=== PATIENT | female | born 1945 | race Caucasian/White ===

== ENCOUNTER 2020-02-16 13:02 | Emergency (ER) | payer MEDICARE ==
[2020-02-16 14:08] LABS: Absolute Neutrophil Ct (ANC) 1.56 (1.4-6.9); Basophil (Absolute #) 0 (0-0.4); Eosinophil % 1.3 % (0.00-5.0); Eosinophil (Absolute #) 0.05 (0-0.5); Hematocrit 43.6 % (35-47); Hemoglobin 14.2 gm/dl (12.0-16.0); Lymphocyte (Absolute #) 1.75 (1.0-4.6); Lymphocytes % 45.8 % (24.0-44.0); Mean Corpuscular Hemoglobin 30.9 pg (26-32); Mean Corpuscular Hgb Concent. 32.6 g/dl (32-36); Mean Platelet Volume 10.6 fl (7.5-11.0); Monocyte (Absolute #) 0.46 (0.0-1.3); Neutrophil % 40.9 % (36.0-66.0); Platelet Count 157 K/mm3 (150-450); Red Blood Count 4.59 M/mm3 (4.1-5.4); Red Cell Distribution Width 13.5 % (11.5-14.0); White Blood Count 3.8 K/mm3 (4.0-10.5)
[2020-02-16 14:19] LABS: ALBUMIN 4.4 g/dL (3.5-5.0); ANION GAP 14.1 MEQ/L (5-15); BILIRUBIN,TOTAL 0.7 mg/dL (0.2-1.3); Calcium 9.2 mg/dL (8.4-10.2); Creatinine 1 1.77 mg/dL (0.52-1.04); Total Protein 7.6 g/dL (6.3-8.2)
[2020-02-16 14:21] LABS: INR 1.3 (0.8-3.0); PROTIME 14.7 SECONDS (9.95-12.35)
[2020-02-16 14:24] LABS: PTT 31.4 SECONDS (25.3-37.0)
[2020-02-16 14:32] LABS: Appearance SLIGHTLY CLOUDY (CLEAR); Bacteria FEW /HPF (NEGATIVE); Bilirubin SMALL (NEGATIVE); Blood NEGATIVE Ery/ul (0-5); Epithelial Cells RARE /HPF (FEW); Glucose NEGATIVE (NEGATIVE); Ketones NEGATIVE (NEGATIVE); Leukocyte Esterase LARGE (NEGATIVE); Mucus SLIGHT /HPF (NEGATIVE); Nitrite NEGATIVE (NEGATIVE); Protein,Urine Dip 30 (Negative); Specific Gravity 1.029 (1.005-1.025); Urobilinogen NEGATIVE mg/dL (0-1)
--- NOTE | 2020-02-16 14:47 | ERPHSYRPT ---
- History of Present Illness Source: patient Exam Limitations: no limitations Patient Subjective Stated Complaint: dizziness x 1 at lunch time Triage Nursing Assessment: pt to ED c/o dizzy spell at 1200 today while making lunch. did not fall and no LOC. pt is ambulatory with steady gate on arrival to ED. pt also states she is not dizzy currently. also reports + COVID test came back today after exposure to brother last week. has mild cough and sinus drainage that she is taking sinus meds for with relief. no other COVID sx currently, afebrile on arrival - 98.9 Physician History: 74 yo wf w recent Covid diagnosis presents w short dizzy episode while making lunch. Pt states that she has been relatively asymptomatic w mild, nonproductive cough which seems to be improving. She denies dyspnea/fever/chest pain/focal weakness/melena/hematochezia/N/V/D. Time of Onset/Last Time Seen Normal: 12PM Timing/Duration: other (Lasted 15-20 minutes) Severity: mild Character of Deficits: none Deficits: no difficulties Baseline/Normal Cognition: alert oriented x 3 Current Cognition: alert oriented x 3 Baseline Gait: walks w/o assistance Associated Symptoms: No confusion, No fatigue, No fever, No chills, No loss of consciousness, No nausea, No vomiting, No weakness, No insomnia, No muscle spasms, No numbness/tingling in legs/feet, No paresthesia, No ringing in ears, No seizures, No slurred speech, No trouble walking, No vision changes, No chest pain, No headache Allergies/Adverse Reactions: No Known Drug Allergies Allergy (Unverified 02/16/20 13:59) Home Medications: Atorvastatin Calcium 20 mg PO DAILY 02/16/20 [History] Clopidogrel Bisulfate [Clopidogrel] 75 mg PO DAILY 02/16/20 [History] Losartan Potassium 25 mg PO BID 02/16/20 [History] Metoprolol Tartrate 25 mg PO BID 02/16/20 [History] Nitroglycerin 0.4 mg Tablet [Nitrostat 0.4 MG Tablet] 0.4 mg SL DAILY 02/16/20 [History] PANTOPRAZOLE 40 mg Tablet [Protonix 40MG Tablet] 40 mg PO DAILY 02/16/20 [History] Rivaroxaban [Xarelto] 15 mg PO DAILY 02/16/20 [History] hydroCHLOROthiazide [Hydrochlorothiazide] 12.5 mg PO DAILY 02/16/20 [History] Hx Tetanus, Diphtheria Vaccination/Date Given: Yes Hx Influenza Vaccination/Date Given: Yes Hx Pneumococcal Vaccination/Date Given: Yes Immunizations Up to Date: Yes Travel Risk - International Travel Have you traveled outside of the country in past 3 weeks: No - Coronavirus Screening Are you exhibiting any of the following symptoms?: No Close contact with a COVID-19 positive Pt in past 14-21 Days: Yes - Review of Systems Constitutional: No Fever, No Chills, No Fatigue, No Lethargy, No Malaise, No Night Sweats, No Weakness, No Weight Loss Eyes: No Symptoms Ears, Nose, & Throat: No Symptoms Respiratory: Cough Cardiac: No Symptoms Abdominal/Gastrointestinal: No Symptoms Genitourinary Symptoms: No Symptoms Musculoskeletal: No Symptoms Skin: No Symptoms Neurological: No Symptoms Psychological: No Symptoms Endocrine: No Symptoms Hematologic/Lymphatic: No Symptoms Immunological/Allergic: No Symptoms - Past Medical History Pertinent Past Medical History: Yes Cardiac History: Angina, Hypertension Other Medical History: hyperlipidemia, heart cath w stents placed - Past Surgical History Past Surgical History: Yes Cardiac: Cardiac Catheterization, Cardiac Stent - Social History Smoking Status: Former smoker Exposure to second hand smoke: No Drug Use: none Patient Lives Alone: No Significant Family History: no pertinent family hx - Female History Hx Now: No - Nursing Vital Signs Nursing Vital Signs: Initial Vital Signs Temperature 98.9 F 02/16/20 13:44 Pulse Rate 72 02/16/20 13:44 Respiratory Rate 16 02/16/20 13:44 Blood Pressure 165/99 02/16/20 13:44 O2 Sat by Pulse Oximetry 94 L 02/16/20 13:44 Pain Scale Pain Intensity 0 - [place] Coma Scale Best Eye Response ([place]): (4) open spontaneously Best Verbal Response ([place]): (5) oriented Best Motor Response ([place]): (6) obeys commands [place] Total: 15 - Physical Exam General Appearance: no apparent distress Eye Exam: bilateral eye: normal inspection, PERRL, EOMI Ears, Nose, Throat Exam: normal ENT inspection, TMs normal, pharynx normal, moist mucous membranes Neck Exam: normal inspection, non-tender, supple, full range of motion, No meningismus, No mass, No Brudzinski Respiratory: normal breath sounds, lungs clear, airway intact, No respiratory distress Cardiovascular: regular rate/rhythm, normal heart sounds, No murmur Gastrointestinal: soft, normal bowel sounds Back Exam: normal inspection, normal range of motion, CVA tenderness, No vertebral tenderness Extremity Exam: normal inspection, normal range of motion, pedal edema (Chronic) Mental Status: alert, oriented x 3, 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 Exam: normal hearing, normal speech, PERRL Coordination/Gait: normal finger to nose Motor/Sensory: no motor deficit, no sensory deficit, no pronator drift, negative Babinski's sign DTR: bicep (R): 2+, bicep (L): 2+, knee (R): 2+, knee (L): 2+ Skin Exam: normal color, warm, dry, No rash SpO2 Interpretation: borderline oxygenation SpO2: 92 O2 Delivery: Room Air - Course Nursing assessment & vital signs reviewed: Yes EKG Interpreted by Me: RATE (Paced/R71/Normal Qt-Qtc/Poor R wave progression/Flat T waves) Ordered Tests: Active Orders 24 hr Category Date Time Status Bridge Repairer STAT Care 02/16/20 13:44 Completed EKG-ER Only STAT Care 02/16/20 13:44 Completed IV Insertion STAT Care 02/16/20 13:36 Completed Pulse Oximetry (ED) STAT Care 02/16/20 13:44 Completed CHEST WITHOUT CONTRAST [CT] Stat Exams 02/16/20 13:47 Completed HEAD WITHOUT CONTRAST [CT] Stat Exams 02/16/20 13:47 Completed CBC W DIFF Stat Lab 02/16/20 13:45 Completed CMP Stat Lab 02/16/20 13:45 Completed CULTURE,URINE Stat Lab 02/16/20 Received Lactic Acid Stat Lab 02/16/20 13:44 Completed PROTIME WITH INR Stat Lab 02/16/20 13:45 Completed PTT Stat Lab 02/16/20 13:45 Completed TROPONIN Q3H Lab 02/16/20 13:45 Completed TROPONIN Q3H Lab 02/16/20 17:00 Completed UA W/RFX UR CULTURE Stat Lab 02/16/20 Completed Medication Summary Discontinued Medications Generic Name Dose Route Start Last Admin Trade Name Freq PRN Reason Stop Dose Admin Sodium Chloride 1,000 mls @ 999 mls/hr 02/16/20 17:10 02/16/20 17:16 Sodium Chloride 0.9% 1000 Ml IV 02/16/20 18:10 999 mls/hr .Q1H1M STA Administration Sodium Chloride Confirm 02/16/20 17:12 Sodium Chloride 0.9% 1000 Ml Administered 02/16/20 17:13 Dose 1,000 mls @ ud .ROUTE .STK-MED ONE Lab/Rad Data: Laboratory Result Diagrams 02/16/20 13:45 02/16/20 13:45 Laboratory Results 02/16/20 02/16/20 02/16/20 Range/Units Unknown 17:00 13:45 WBC (4.0-10.5) K/mm3 RBC (4.1-5.4) M/mm3 Hgb (12.0-16.0) gm/dl Hct (35-47) % MCV (78-100) fl MCH (26-32) pg MCHC (32-36) g/dl RDW (11.5-14.0) % Plt Count (150-450) K/mm3 MPV (7.5-11.0) fl Gran % (36.0-66.0) % Eos # (Auto) (0-0.5) Absolute Lymphs (auto) (1.0-4.6) Absolute Monos (auto) (0.0-1.3) Lymphocytes % (24.0-44.0) % Monocytes % (0.0-12.0) % Eosinophils % (0.00-5.0) % Basophils % (0.0-0.4) % Absolute Granulocytes (1.4-6.9) Basophils # (0-0.4) PT (9.95-12.35) SECONDS INR (0.8-3.0) APTT (25.3-37.0) SECONDS Sodium (137-145) mmol/L Potassium (3.5-5.1) mmol/L Chloride (98-107) mmol/L Carbon Dioxide (22-30) mmol/L Anion Gap (5-15) MEQ/L BUN (7-17) mg/dL Creatinine (0.52-1.04) mg/dL Estimated GFR ML/MIN Glucose (74-106) mg/dL Lactic Acid (0.4-2.0) Calcium (8.4-10.2) mg/dL Total Bilirubin (0.2-1.3) mg/dL AST (14-36) U/L ALT (0-35) U/L Alkaline Phosphatase (38-126) U/L Troponin I < 0.012 < 0.012 (0.000-0.034) ng/mL Serum Total Protein (6.3-8.2) g/dL Albumin (3.5-5.0) g/dL Urine Color FRANCIE (YELLOW) Urine Appearance SLIGHTLY CLOUDY (CLEAR) Urine pH 5.0 (5-6) Ur Specific [place] 1.029 (1.005-1.025) Urine Protein 30 (Negative) Urine Ketones NEGATIVE (NEGATIVE) Urine Blood NEGATIVE (0-5) Adrian/ul Urine Nitrite NEGATIVE (NEGATIVE) Urine Bilirubin SMALL (NEGATIVE) Urine Urobilinogen NEGATIVE (0-1) mg/dL Ur Leukocyte Esterase LARGE (NEGATIVE) Urine WBC (Auto) 6-10 (0-5) /HPF Urine RBC (Auto) 3-5 (0-2) /HPF U Hyaline Cast (Auto) 11-25 (0-2) /LPF U Epithel Cells (Auto) RARE (FEW) /HPF Urine Bacteria (Auto) FEW (NEGATIVE) /HPF Urine Mucus (Auto) SLIGHT (NEGATIVE) /HPF Urine Culture Reflexed YES (NO) Urine Glucose NEGATIVE (NEGATIVE) mg/dL 02/16/20 02/16/20 02/16/20 Range/Units 13:45 13:45 13:45 WBC 3.8 L (4.0-10.5) K/mm3 RBC 4.59 (4.1-5.4) M/mm3 Hgb 14.2 (12.0-16.0) gm/dl Hct 43.6 (35-47) % MCV 95.0 (78-100) fl MCH 30.9 (26-32) pg MCHC 32.6 (32-36) g/dl RDW 13.5 (11.5-14.0) % Plt Count 157 (150-450) K/mm3 MPV 10.6 (7.5-11.0) fl Gran % 40.9 (36.0-66.0) % Eos # (Auto) 0.05 (0-0.5) Absolute Lymphs (auto) 1.75 (1.0-4.6) Absolute Monos (auto) 0.46 (0.0-1.3) Lymphocytes % 45.8 H (24.0-44.0) % Monocytes % 12.0 (0.0-12.0) % Eosinophils % 1.3 (0.00-5.0) % Basophils % 0.0 (0.0-0.4) % Absolute Granulocytes 1.56 (1.4-6.9) Basophils # 0 (0-0.4) PT 14.7 H (9.95-12.35) SECONDS INR 1.30 (0.8-3.0) APTT 31.4 (25.3-37.0) SECONDS Sodium 137 (137-145) mmol/L Potassium 4.0 (3.5-5.1) mmol/L Chloride 103 (98-107) mmol/L Carbon Dioxide 24 (22-30) mmol/L Anion Gap 14.1 (5-15) MEQ/L BUN 29 H (7-17) mg/dL Creatinine 1.77 H (0.52-1.04) mg/dL Estimated GFR 30.0 ML/MIN Glucose 114 H (74-106) mg/dL Lactic Acid (0.4-2.0) Calcium 9.2 (8.4-10.2) mg/dL Total Bilirubin 0.70 (0.2-1.3) mg/dL AST 24 (14-36) U/L ALT 16 (0-35) U/L Alkaline Phosphatase 80 (38-126) U/L Troponin I (0.000-0.034) ng/mL Serum Total Protein 7.6 (6.3-8.2) g/dL Albumin 4.4 (3.5-5.0) g/dL Urine Color (YELLOW) Urine Appearance (CLEAR) Urine pH (5-6) Ur Specific [place] (1.005-1.025) Urine Protein (Negative) Urine Ketones (NEGATIVE) Urine Blood (0-5) Adrian/ul Urine Nitrite (NEGATIVE) Urine Bilirubin (NEGATIVE) Urine Urobilinogen (0-1) mg/dL Ur Leukocyte Esterase (NEGATIVE) Urine WBC (Auto) (0-5) /HPF Urine RBC (Auto) (0-2) /HPF U Hyaline Cast (Auto) (0-2) /LPF U Epithel Cells (Auto) (FEW) /HPF Urine Bacteria (Auto) (NEGATIVE) /HPF Urine Mucus (Auto) (NEGATIVE) /HPF Urine Culture Reflexed (NO) Urine Glucose (NEGATIVE) mg/dL 02/16/20 Range/Units 13:44 WBC (4.0-10.5) K/mm3 RBC (4.1-5.4) M/mm3 Hgb (12.0-16.0) gm/dl Hct (35-47) % MCV (78-100) fl MCH (26-32) pg MCHC (32-36) g/dl RDW (11.5-14.0) % Plt Count (150-450) K/mm3 MPV (7.5-11.0) fl Gran % (36.0-66.0) % Eos # (Auto) (0-0.5) Absolute Lymphs (auto) (1.0-4.6) Absolute Monos (auto) (0.0-1.3) Lymphocytes % (24.0-44.0) % Monocytes % (0.0-12.0) % Eosinophils % (0.00-5.0) % Basophils % (0.0-0.4) % Absolute Granulocytes (1.4-6.9) Basophils # (0-0.4) PT (9.95-12.35) SECONDS INR (0.8-3.0) APTT (25.3-37.0) SECONDS Sodium (137-145) mmol/L Potassium (3.5-5.1) mmol/L Chloride (98-107) mmol/L Carbon Dioxide (22-30) mmol/L Anion Gap (5-15) MEQ/L BUN (7-17) mg/dL Creatinine (0.52-1.04) mg/dL Estimated GFR ML/MIN Glucose (74-106) mg/dL Lactic Acid 1.3 (0.4-2.0) Calcium (8.4-10.2) mg/dL Total Bilirubin (0.2-1.3) mg/dL AST (14-36) U/L ALT (0-35) U/L Alkaline Phosphatase (38-126) U/L Troponin I (0.000-0.034) ng/mL Serum Total Protein (6.3-8.2) g/dL Albumin (3.5-5.0) g/dL Urine Color (YELLOW) Urine Appearance (CLEAR) Urine pH (5-6) Ur Specific [place] (1.005-1.025) Urine Protein (Negative) Urine Ketones (NEGATIVE) Urine Blood (0-5) Adrian/ul Urine Nitrite (NEGATIVE) Urine Bilirubin (NEGATIVE) Urine Urobilinogen (0-1) mg/dL Ur Leukocyte Esterase (NEGATIVE) Urine WBC (Auto) (0-5) /HPF Urine RBC (Auto) (0-2) /HPF U Hyaline Cast (Auto) (0-2) /LPF U Epithel Cells (Auto) (FEW) /HPF Urine Bacteria (Auto) (NEGATIVE) /HPF Urine Mucus (Auto) (NEGATIVE) /HPF Urine Culture Reflexed (NO) Urine Glucose (NEGATIVE) mg/dL - Progress Progress: improved Counseled pt/family regarding: lab results, diagnosis, need for follow-up, rad results - Departure Departure Disposition: Home Clinical Impression: Dizziness, Urinary tract infection Condition: Stable Critical Care Time: No Referrals: ROSA LOAIZA PA [Primary Care Provider] - Instructions: Dizziness, Nonvertigo, (DC) Additional Instructions: Follow up with your family MD Return to ER for focal weakness/Increasing shortness of breath/chest pain/temperature greater than 100.5 Prescriptions: Smz/Tmp Ds Tablet [Bactrim Ds Tablet] 1 tab PO Q12H 5 Days #10 tablet
--- NOTE | 2020-02-16 16:11 | XRAY ---
Exam: CT of the head without IV contrast from 02/16/2020. CTDI: 53.92 mGy Comparison: None. Indication: 74-year-old female positive for Covid-19; dizziness. Technique: Non-IV contrast axial images were obtained through the brain. Reconstructed coronal and sagittal images were created and reviewed. Findings: The ventricles are of normal size and configuration. No focal mass effect or midline shift is seen. There are small bilateral basal ganglia calcifications. This is nonspecific. No acute intracranial bleed or abnormal extra-axial fluid collection is seen. The hauser matter-white matter junctions appear unremarkable. Structures of the posterior fossa appear unremarkable. The cortical sulci and basilar cisterns appear normal for age. Some vascular calcification is seen within both distal vertebral arteries and both carotid siphons. The calvarium of the skull appears intact. Hyperostosis frontalis interna is evident. There is no evidence of fracture. The orbits appear unremarkable. The visualized paranasal sinuses are clear. The mastoid air cells are clear without effusion. Impression: 1. No acute intracranial bleed or other acute intracranial process is seen. There is incidental note of some small bilateral basal ganglia calcifications.
--- NOTE | 2020-02-16 16:36 | XRAY ---
Exam: CT of the chest without IV contrast from 02/16/2020. Total DLP: 351.46 mGy-cm Comparison: None. Indication: Positive for Covid-19; dizziness. Technique: Non-IV contrast axial images were obtained through the chest. Reconstructed coronal and sagittal images were created and reviewed. Findings: A left sided cardiac pacemaker is seen with dual transvenous leads in place. The heart size is normal without pericardial effusion. Some mild scattered left coronary artery vascular calcification is seen. I see no evidence of abnormal mediastinal or perihilar lymphadenopathy. Some scattered granulomatous calcifications are seen to the left of the subcarinal region, left hilum, and left infrahilar projection. Some vascular calcification is also seen within the aortic arch and descending thoracic aorta. There is a questionable 8 mm to 9 mm low-attenuation nodule at the inferior pole of the left lobe of the thyroid gland on axial image #4 and coronal image #66. There is a moderately large retrocardiac hiatal hernia. The lung window images reveal no peripheral groundglass opacities or dense airspace consolidations. I note mild, obliquely oriented linear scarring or atelectasis at the posterior left lung base. Scant posterior dependent atelectatic changes are seen at the lung bases. No suspicious soft tissue lung nodules, pneumothorax, or pleural effusion is seen. A small calcified granuloma is seen at the lateral left lung base. The upper abdomen reveals moderate atherosclerotic vascular calcification. There is a probable duodenal diverticulum noted near the junction of the second and third portions of the duodenum. The adrenal glands appear unremarkable. The skeleton reveals no acute fracture or aggressive bone lesion. Mild vertebral endplate spurring is seen within the lower mid thoracic spine. Impression: 1. I see no peripheral groundglass opacities or airspace consolidations within either lung field. 2. Obliquely oriented, linear scarring/atelectasis is seen at the posterior left lung base. 3. Moderately large retrocardiac hiatal hernia. 4. Old healed granulomatous disease on the left. 5. Query 8mm to 9 mm nodule within the inferior pole of left lobe of thyroid gland. Consider further evaluation with thyroid ultrasound. 6. Left-sided cardiac pacemaker.
[2020-02-16] MEDS ORDERED: Sodium Chloride 0.9% 1000 ML 1,000 ML IV STA (17:10)
[2020-02-16] MEDS ORDERED: Sodium Chloride 0.9% 1000 ML 1,000 ML ONE (17:12)
[2020-02-16 18:15] VITALS: BP 144/79; PULSE 77
[2020-02-16 18:33] VITALS: O2SAT 92
== END 2020-02-16 18:10 | disposition home or self-care (01) ==
LOC: ED 13:02
DX: R42 Dizziness and giddiness (principal); N39.0 Urinary tract infection, site not specified; Z79.899 Other long term (current) drug therapy; Z79.01 Long term (current) use of anticoagulants
CPT/HCPCS: 36000; 36415; 70450; 71250; 80053; 81001; 83605; 84484; 85025; 85610; 85730; 87077; 87086; 87186; 93005; 93041; 94760; 96360; 99284

== ENCOUNTER 2024-05-21 16:44 | Emergency (ER) | payer MEDICARE ==
--- NOTE | 2024-05-21 17:46 | ERPHSYRPT ---
- History of Present Illness Source: patient, family Exam Limitations: no limitations Patient Subjective Stated Complaint: PT HERE BRUISING AND PAIN TO RIGHT LEG. SHE DENIES ANY INJURY Triage Nursing Assessment: PT ALERT, WALKED IN, NO LIMB, RESP EASY,SKIN W/D/P. MOVES ALL EXT WELL, HAS BRUISING FROM HIP TO CALF Method of Injury: other (No injury) Occurred: yesterday Quality: throbbing Severity of Pain-Max: mild Severity of Pain-Current: mild Lower Extremities Pain: hip: right, leg: right, knee: right, thigh: right Modifying Factors: Improves With: movement Associated Symptoms: none Hx Tetanus, Diphtheria Vaccination/Date Given: Yes Hx Influenza Vaccination/Date Given: No Hx Pneumococcal Vaccination/Date Given: No Immunizations Up to Date: Yes <ZACKERY VICTOR - Last Filed: 05/21/24 18:51> <YAYO MARCIAL - Last Filed: 05/21/24 19:38> - History of Present Illness Time Seen by Provider: 05/21/24 17:46 Physician History: This is a 78-year-old white female patient who woke up yesterday morning with bruising and tenderness in the proximal right anterior lateral thigh over 24 hours the bruising and pain worsened distally/caudally. She is convinced there is no trauma to this area. Patient does have a history of varicose veins. She is also on Plavix and Xarelto. She is concerned about a DVT. She contacted her paramedic by phone in the office told her to come to the emergency department to get a venous Doppler. There is mild throbbing present. (ZACKERY VICTOR) Allergies/Adverse Reactions: No Known Drug Allergies Allergy (Verified 05/21/24 17:28) Home Medications: Atorvastatin Calcium 20 mg PO DAILY 02/16/20 [History] Clopidogrel Bisulfate [Clopidogrel] 75 mg PO DAILY 02/16/20 [History] Losartan Potassium 25 mg PO BID 02/16/20 [History] Metoprolol Tartrate 25 mg PO BID 02/16/20 [History] Nitroglycerin 0.4 mg Tablet [Nitrostat 0.4 MG Tablet] 0.4 mg SL DAILY 02/16/20 [History] PANTOPRAZOLE 40 mg Tablet [Protonix 40MG Tablet] 40 mg PO DAILY 02/16/20 [History] Rivaroxaban [Xarelto] 15 mg PO DAILY 02/16/20 [History] hydroCHLOROthiazide [Hydrochlorothiazide] 12.5 mg PO DAILY 02/16/20 [History] Travel Risk - International Travel Have you traveled outside of the country in past 3 weeks: No - Emerging Infectious Disease Are you exhibiting symptoms associated with any current EIDs: No <ZACKERY VICTOR - Last Filed: 05/21/24 18:51> - Review of Systems Constitutional: No Symptoms Eyes: No Symptoms Ears, Nose, & Throat: No Symptoms Respiratory: No Symptoms Cardiac: No Symptoms Abdominal/Gastrointestinal: No Symptoms Genitourinary Symptoms: No Symptoms Musculoskeletal: Other (No injury but bruising swelling tenderness right lower limb) Skin: No Symptoms Neurological: No Symptoms Psychological: No Symptoms Endocrine: No Symptoms Hematologic/Lymphatic: No Symptoms Immunological/Allergic: No Symptoms All Other Systems: Reviewed and Negative <ZACKERY VICTOR - Last Filed: 05/21/24 18:51> - Past Medical History Pertinent Past Medical History: Yes Cardiac History: Angina, Coronary Artery Disease, Hypertension Other Medical History: hyperlipidemia, heart cath w stents placed - Past Surgical History Past Surgical History: Yes Cardiac: Cardiac Catheterization, Cardiac Stent, Pacemaker Gastrointestinal: Cholecystectomy Significant Family History: no pertinent family hx - Social History Smoking Status: Former smoker Exposure to second hand smoke: No Drug Use: none Patient Lives Alone: No - Social Determinants of Health Will the patient participate in the screening: Yes Do you worry about a steady place to live?: Yes Do you have any problems with any of the following?: No known problems In the past 12 months,have you had to go without utilities?: No Transportation Issues: No Has anyone in your support network made you feel unsafe?: No Have you or anyone in your house had to go without enough: No <ZACKERY VICTOR - Last Filed: 05/21/24 18:51> - Physical Exam General Appearance: no apparent distress, alert, anxiety, obese Eyes, Ears, Nose, Throat Exam: normal ENT inspection, moist mucous membranes Neck Exam: normal inspection, non-tender, supple, full range of motion Cardiovascular/Respiratory Exam: chest non-tender, no respiratory distress Gastrointestinal/Abdominal Exam: non-tender Hips Exam: right: soft tissue tenderness (With bruising and swelling), left: non-tender, normal inspection, bilateral: normal range of motion, no evidence of injury Legs Exam: right leg: soft tissue tenderness (With bruising and swelling), left leg: non-tender, normal inspection, bilateral leg: normal range of motion, no evidence of injury Knees Exam: right knee: soft tissue tenderness (With bruising and swelling), left knee: non-tender, normal inspection, bilateral knee: normal range of motion, no evidence of injury Ankle Exam: bilateral ankle: non-tender, normal inspection, normal range of motion, no evidence of injury Foot Exam: bilateral foot: non-tender, normal inspection, normal range of motion, no evidence of injury Neuro/Tendon Exam: normal sensation, normal motor functions, normal tendon functions, responds to pain, no evidence tendon injury Mental Status Exam: alert, oriented x 3, cooperative Skin Exam: warm, dry, ecchymosis (Right lower extremity) SpO2 Interpretation: normal SpO2: 96 O2 Delivery: Room Air <ZACKERY VICTOR - Last Filed: 05/21/24 18:51> - Nursing Vital Signs Nursing Vital Signs: Initial Vital Signs Blood Pressure 153/89 05/21/24 17:28 O2 Sat by Pulse Oximetry 96 05/21/24 17:28 Pain Scale Pain Intensity 3 - Course Nursing assessment & vital signs reviewed: Yes <ZACKERY VICTOR - Last Filed: 05/21/24 18:51> - Radiology Ultrasound Exam Venous Lower Extremity Ultrasound: tele radiology report (Negative for DVT right lower extremity) <YAYO MARCIAL - Last Filed: 05/21/24 19:38> Ordered Tests: Active Orders 24 hr Category Date Time Status VENOUS UNILAT/LIMITED EXTREMIT [US] Stat Exams 05/21/24 18:28 Taken <ZACKERY VICTOR - Last Filed: 05/21/24 18:51> - Progress Progress: improved Counseled pt/family regarding: diagnosis, need for follow-up, rad results <YAYO MARCIAL - Last Filed: 05/21/24 19:38> - Progress Progress Note: 05/21/24 18:41 My medical decision making and the assignment of moderate complexity to this patient's medical issue today is based on review of the patient's past medical history, review of the patient's medication list, reviewed patient drug allergy list, history present illness and physical findings on examination. The workup in this patient includes venous Doppler of the right lower extremity. Differential diagnosis includes muscular and subcutaneous hematoma, DVT, leaking superficial thrombophlebitis I am signing out and transferring care of this patient to Dr. Yayo Marcial at shift change. He will follow-up on the test results and make final disposition. (ZACKERY VICTOR) Patient is a 78-year-old female presents to our ED specifically for an ultrasound right lower extremity rule out DVT. Licensed Clinical Psychologist provided verbal report to RN that the ultrasound was negative. Patient is aware of the negative report. Patient reassessed. She is resting comfortably. No active pain she is comfortable with states he is ready for discharge. We will discharge patient home. Patient agrees to follow-up with her primary care doctor within 48 hours for reevaluation. She voices no other complaints or concerns at this time. Portions of this note were created with voice recognition technology. There may be grammatical, spelling, punctuation or sound alike errors 05/21/24 19:35 (YAYO MARCIAL) Medical Desision Making - Independent Historian Additional History obtained from: Family <ZACKERY VICTOR - Last Filed: 05/21/24 18:51> - Departure Departure Disposition: Home Critical Care Time: No <ZACKERY VICTOR - Last Filed: 05/21/24 18:51> <YAYO MARCIAL - Last Filed: 05/21/24 19:38> - Departure Clinical Impression: Right leg pain Condition: Stable Referrals: ROSA LOAIZA PA [Primary Care Provider] - Follow up/PCP as directed Additional Instructions: Discharge/Care Plan ELISEO GARCÍA was seen on 05/21/24 in the Emergency Room. The patient was counseled regarding Diagnosis,Lab results, Imaging studies, need for follow up and when to return to the Emergency Room. Prescriptions given: Discharge Note I have spoken with the patient and/or caregivers. I have explained the patient's condition, diagnosis and treatment plan based on the information available to me at this time. I have answered the patient's and/or caregiver's questions and addressed any concerns. The patient and/or caregivers have as good understanding of the patient's diagnosis, condition and treatment plan as can be expected at this point. The vital signs have been stable. The patient's condition is stable and appropriate for discharge from the emergency department. The patient will pursue further outpatient evaluation with the primary care physician or other designated or consulting physician as outlined in the discharge instructions. The patient and/or caregivers are agreeable to this plan of care and follow-up instructions have been explained in detail. The patient and/or caregivers have received these instruction. The patient/and or caregivers are aware that any significant change in condition or worsening of symptoms should prompt an immediate return to this or the closest emergency department or call 911.
[2024-05-21 18:33] VITALS: RESP 18
[2024-05-21 19:42] VITALS: BP 120/68; PULSE 72; TEMP 98.2; O2SAT 95
--- NOTE | 2024-05-22 08:49 | XRAY ---
Indication: Right leg swelling and pain. Chronic blood in her therapy. Two-dimensional sonogram and color Doppler imaging major venous vessels right leg performed. Comparison: None No thrombus seen in the examined deep venous vessels right leg including greater saphenous vein. Veins demonstrate normal compressibility. Venous waveforms are normal with and without augmentation. Targeted soft tissue ultrasound over region of interest is negative for focal solid/cystic mass or abnormal fluid collection. Impression: Right leg negative for DVT. Comment: Preliminary report was given.
== END 2024-05-21 19:48 | disposition home or self-care (01) ==
LOC: ED 16:44
DX: M79.604 Pain in right leg (principal); Z79.01 Long term (current) use of anticoagulants; Z79.899 Other long term (current) drug therapy
CPT/HCPCS: 93971; 99283; 99284